=== PATIENT | male | born 1970 | race Two or more races ===

== ENCOUNTER 2022-10-13 12:13 | Inpatient (IN) | payer OTHER, SELFPAY ==
[2022-10-13 12:19] VITALS: BP 110/71; BP 126/70; PULSE 91; PULSE 96; RESP 18; TEMP 37.6; O2SAT 96; O2SAT 98; BMI 24.4
[2022-10-13 12:26] VITALS: BP 110/71; PULSE 91; RESP 18; TEMP 37.6; O2SAT 98
[2022-10-13 13:05] LABS: Appearance Urine Clear; Color Urine Yellow; Glucose Urine UA >=1000 mg/dL (Negative); Leukocyte Esterase Urine Negative (Negative); Nitrite Urine Negative (Negative); Specific Gravity - Urine >= 1.030 (1.005-1.025); UMIC TRIGGER UACC YES; Urine Blood Negative (Negative); Urine Ketones 15 mg/dL (Negative); Urine Protein Negative (Neg-Trace)
[2022-10-13 13:10] LABS: Bacteria Urine None Seen (None Seen); Hyaline Casts Urine 0-2 /LPF (0-2); RBC Urine 0-2 /HPF (0-2); Squamous Epithelial Cell Urine 0-2 /HPF (0-2); WBC Urine 0-5 /HPF (0-5)
--- NOTE | 2022-10-13 13:15 | PC.NURSE ---
Pt is refusing blood draw at this time.
[2022-10-13 13:22] LABS: Amphetamine Screen Urine Not Detected (Not Detect); Barbiturates, Urine Not Detected (Not Detect); Benzodiazepines Screen Urine Not Detected (Not Detect); Cannabinoid Screen Urine POSITIVE (Not Detect); Cocaine Screen Urine Not Detected (Not Detect); Fentanyl, urine Not Detected (Not Detect); Opiate Screen Urine Not Detected (Not Detect); Phencyclidine Screen Urine Not Detected (Not Detect)
[2022-10-13 13:31] LABS: COVID-19 Test Negative (Negative); IDNOW Serial# 16C4AD1C
[2022-10-13 14:01] LABS: MANUAL DIFF FLAG NO
[2022-10-13 14:02] LABS: Hematocrit 44.1 % (42.0-52.0); Hemoglobin 14.9 g/dl (14.0-18.0); Mean Corpuscular HGB Conc 33.8 g/dl (31.0-36.0); Mean Corpuscular Hemoglobin 31.2 pg (27.0-33.0); Mean Corpuscular Volume 92.3 fL (80.0-98.0); Platelet Count 214 X10*3/uL (160-400); Red Blood Count 4.78 X10*6/uL (4.60-5.80); Red Cell Distribution Width 12.8 % (11.0-16.0); White Blood Count 6.5 X10*3/uL (4.8-10.8)
[2022-10-13 14:03] LABS: Basophils Percent Auto 0.5 % (0-2); Eosinophils Absolute Auto 0.3 X10*3/uL (0.0-0.4); Imm Gran Abs Auto 0.04 X10*3/uL (0.00-0.03); Imm Gran Pct Auto 0.6 % (0.0-0.4); Lymphocytes Absolute Auto 1.9 X10*3/uL (1.2-4.9); Lymphocytes Percent Auto 29.7 % (20-40); Mean Platelet Volume 8.7 fL (9.4-12.4); Monocytes Absolute Auto 0.4 X10*3/uL (0.1-1.2); Monocytes Percent Auto 6.5 % (2-11); Neutrophils Absolute Auto 3.8 x10*3/uL (2.0-8.3); Neutrophils Percent Auto 58.7 % (45-73)
--- NOTE | 2022-10-13 14:14 | ECG_ITS ---
Test Reason : OVER 50YRS M5 CLEARANCE Blood Pressure : / mmHG Vent. Rate : 086 BPM Atrial Rate : 086 BPM P-R Int : 156 ms QRS Dur : 086 ms QT Int : 352 ms P-R-T Axes : 030 024 026 degrees QTc Int : 421 ms Normal sinus rhythm Normal ECG No previous ECGs available Referred By: Blas Oneil Electronically Signed By:KURT BANGURA MD
[2022-10-13 14:22] LABS: Alanine Aminotransferase 15 U/L (0-40); Alkaline Phosphatase 62 U/L (39-117); Anion Gap 16 (12-20); Aspartate Amino Transferase 16 U/L (5-37); Bilirubin Total 0.4 mg/dL (0.0-1.0); Blood Urea Nitrogen 13 mg/dL (9-16); Calcium 9.1 mg/dL (8.4-10.2); Carbon Dioxide 26 mmol/L (22-29); Chloride 97 mmol/L (96-108); Creatinine Clr Calc Pharmacy 92.6; Estimated Glomerular Filt Rate > 60; Glucose Random 275 mg/dL (60-115); Lipase 61 U/L (8-78); Potassium 3.8 mmol/L (3.3-5.1); Sodium 135 mmol/L (135-145); Total Protein 6.4 g/dL (6.5-8.0)
--- NOTE | 2022-10-13 17:12 | ED.PSYCH ---
HPI - Psych General Chief Complaint: Psychiatric Symptoms Stated Complaint: SI/HI,CALM AND COOP PER EMS Time Seen by Provider: 10/13/22 12:15 Source: patient Mode of arrival: EMS Limitations: no limitations History of Present Illness HPI Narrative: 52-year-old man who was brought to the emergency department on a Section 12 for suicidal ideation. The patient states that he had a ?spiritual attack ?this morning at 05:00 hours. He describes this as seeing himself choking himself and that there is a figure that stands in front of him with no face but only on eyes. He states that he has had this type of attack multiple times in the past. He states that this is made him feel very suicidal and he states that he does not feel that there is any way out. He states the talking about being suicidal makes him anxious but he did tell me that he does not have a plan to harm himself. He denies being homicidal but he states that he feels like he needs to fight against demons. Patient was seen by crisis as an outpatient call placed on a Section 12 and sent to the emergency department. Patient states that he was last hospitalized for his psychiatric condition in June of 2022 at [facility]. He states that he has the following psychiatric diagnoses: Depression, anxiety, bipolar disorder, schizophrenia. MD complaint: suicidal ideation Onset (ago): hour(s) Duration: constant History of same: Yes Relieving factors: none Exacerbating factors: none Associated psychiatric symptoms: depression, suicidal ideation and visual hallucinations Associated symptoms: denies other symptoms Treatments prior to arrival: none If self harm: admits thoughts of self harm Related Data Home Medications Medication Instructions Recorded Confirmed acetaminophen 325 mg tablet 650 mg PO Q4-6H PRN Pain 10/13/22 10/13/22 (Tylenol) aluminum-mag hydroxide-simethicone 1 tab PO Q4-6H PRN Acid Reflux 10/13/22 10/13/22 200 mg-200 mg-20 mg chewable tablet clonidine HCl 0.1 mg tablet 0.1 mg PO TID 10/13/22 10/13/22 diphenhydramine HCl 50 mg capsule 50 mg PO BEDTIME 10/13/22 10/13/22 divalproex 500 mg tablet,delayed 500 mg PO TID 10/13/22 10/13/22 release (Depakote) fluoxetine 40 mg capsule (Prozac) 40 mg PO QPM 10/13/22 10/13/22 gabapentin 100 mg capsule 100 mg PO TID 10/13/22 10/13/22 glipizide 5 mg tablet, extended 5 mg PO DAILY 10/13/22 10/13/22 release 24 hr guaifenesin 200 mg/5 mL oral liquid 200 mg PO Q4H PRN Cough 10/13/22 10/13/22 magnesium hydroxide 2,400 mg/10 mL 10 ml PO DAILY PRN Acid Reflux 10/13/22 10/13/22 oral suspension (Milk Of Magnesia Concentrated) metformin 1,000 mg tablet 1,000 mg PO BID 10/13/22 10/13/22 naloxone 4 mg/actuation nasal 1 spray intranasal USEASDIRECTD 10/13/22 10/13/22 spray (Narcan) PRN (Drug) Ingestion prazosin 2 mg capsule 4 mg PO BEDTIME 10/13/22 10/13/22 quetiapine 100 mg tablet (Seroquel) 100 mg PO BEDTIME 10/13/22 10/13/22 Allergies Allergy/AdvReac Type Severity Reaction Status Date / Time atorvastatin [From Lipitor] Allergy Unknown Verified 10/13/22 12:19 prochlorperazine Allergy Unknown Verified 10/13/22 12:19 [From Compazine] sitagliptin [From Januvia] Allergy Unknown Verified 10/13/22 12:19 Review of Systems Review of Systems: Yes all other systems are reviewed and are negative [facility] Past Medical History [facility] Narrative: Past medical history: Diabetes mellitus, diabetic neuropathy of his hands and feet, hypertension, hyperlipidemia, depression, anxiety, bipolar disorder, schizophrenia. Past surgical history: None. Social history: He states that he smokes cigars 1-2 per day. Denies alcohol use. States that he smokes marijuana 2 times a month. States that he is currently living at the [facility] which he states is a dual diagnosis program. States these therefore his psychiatric and mental disorders as well as marijuana addiction. Social History Social History Alcohol intake: unknown Smoked in Last 30 Days: No Use of substances other than those prescribed or required for medical reasons: Refusing to respond Advance Directives: No Physical Exam Vital Signs: Vital Signs: Last Vital Signs Temp 99.7 F 10/13/22 12:26 Pulse 91 10/13/22 12:26 Resp 18 10/13/22 12:26 BP 110/71 10/13/22 12:26 Pulse Ox 98 10/13/22 12:26 O2 Del Method 10/13/22 12:26 BMI result Body Mass Index 24.4 Const: General: cooperative and no acute distress Orientation/consciousness: oriented to person and oriented to place Limitations: no limitations HEENT: Head: Yes normal to inspection, Yes normocephalic and Yes atraumatic Ears: external ears normal General nose exam: Normal external nose present Face and sinus: Yes normal facial exam Mouth: Normal oral and palatal mucosa present Throat: Yes posterior oropharynx normal Eyes: General: appearance normal, both eyes and all related structures Pupils: Equal, round and reactive pupils present Neck: Neck: Yes normal visual inspection, Yes no lymphadenopathy, Yes trachea midline and Yes supple Chest: Chest palpation & inspection: normal inspection of the chest and normal palpation of entire chest wall Resp: Effort & Inspection: normal respiratory effort and able to speak in complete sentences Auscultation: clear to auscultation bilaterally Cardio: Rate: regular rate Rhythm: regular rhythm Heart sounds: S1 normal heart sound present, S2 normal heart sound present and no murmurs GI: Inspection: Yes normal to inspection Palpation (GI): Soft to palpation, nontender and no guarding Auscultation: normal bowel sounds : General: Yes no CVA tenderness Back/Spine/Pelvis: Back: no CVA tenderness Skin: General skin exam: no rashes or lesions noted Neuro: General: oriented to person and oriented to place Cranial nerves: Yes CN's II-XII intact bilaterally and Yes Equal, round and reactive pupils present Cognition (Neuro): normal cognition Motor exam (neuro): 5/5 motor strength present throughout Extrem: General: Yes normal to inspection Psych: Appearance: grossly normal Speech and movement: Normal speech and movement present Affect: normal affect Attitude: cooperative Thought process: Normal thought process present Thought content: Suicidality present Course Course Course Narrative: 52-year-old male who was sent to the emergency department on a Section 12 after being evaluated as an outpatient by crisis service. Patient is having suicidal ideations as well as visual hallucinations which he states he has had in the past. He states he does feel suicidal he denies feeling homicidal. Vital signs were unremarkable. Patient's physical examination was unremarkable. 1719: Laboratory evaluation: Glucose was elevated 275. Toxicology was positive for marijuana. COVID-19 was negative. Patient is medically cleared. 1719: Start physician observation: The patient will need to be kept in physician observation until appropriate disposition can be found. Patient's physical examination is unchanged from his baseline, he is awake, alert, in no distress, lungs clear, heart regular rate rhythm, lungs clear, abdomen soft nontender, neurologic exam nonfocal MDM - Psych Lab Data Result diagrams: 10/13/22 13:27 10/13/22 13:27 Labs: Lab Results 10/13/22 10/13/22 10/13/22 Range/Units 12:44 12:44 12:44 WBC (4.8-10.8) X10*3/uL RBC (4.60-5.80) X10*6/uL Hgb (14.0-18.0) g/dl Hct (42.0-52.0) % MCV (80.0-98.0) fL MCH (27.0-33.0) pg MCHC (31.0-36.0) g/dl RDW (11.0-16.0) % Plt Count (160-400) X10*3/uL MPV (9.4-12.4) fL Immature Gran % (Auto) (0.0-0.4) % Neut % (Auto) (45-73) % Lymph % (Auto) (20-40) % [place] % (Auto) (2-11) % Eos % (Auto) (0-4) % Baso % (Auto) (0-2) % Lymph # (Auto) (1.2-4.9) X10*3/uL [place] # (Auto) (0.1-1.2) X10*3/uL Eos # (Auto) (0.0-0.4) X10*3/uL Baso # (Auto) (0.0-0.2) X10*3/uL Abs Immat Gran (auto) (0.00-0.03) X10*3/uL Absolute Neuts (auto) (2.0-8.3) x10*3/uL Absolute Nucleated RBC (0.0-0.012) X10*3/uL Nucleated RBC % (auto) (0.0-0.2) /100WBC Sodium (135-145) mmol/L Potassium (3.3-5.1) mmol/L Chloride (96-108) mmol/L Carbon Dioxide (22-29) mmol/L Anion Gap (12-20) BUN (9-16) mg/dL Creatinine (0.5-1.4) mg/dL Estim Creat Clear Calc Estimated GFR Random Glucose (60-115) mg/dL Calcium (8.4-10.2) mg/dL Total Bilirubin (0.0-1.0) mg/dL AST (5-37) U/L ALT (0-40) U/L Alkaline Phosphatase (39-117) U/L Total Protein (6.5-8.0) g/dL Albumin (3.5-5.0) g/dL Lipase (8-78) U/L Urine Color Yellow Urine Appearance Clear Urine pH 5.0 (5.0-9.0) Ur Specific [place] >= 1.030 H (1.005-1.025) Urine Protein Negative (Neg-Trace) mg/dL Urine Glucose (UA) >=1000 H (Negative) mg/dL Urine Ketones 15 (Negative) mg/dL Urine Blood Negative (Negative) Urine Nitrite Negative (Negative) Ur Leukocyte Esterase Negative (Negative) Urine RBC 0-2 (0-2) /HPF Urine WBC 0-5 (0-5) /HPF Ur Squamous Epith Cells 0-2 (0-2) /HPF Urine Bacteria None Seen (None Seen) Hyaline Casts 0-2 (0-2) /LPF Urine Opiates Screen Not Detected (Not Detect) Urine Fentanyl Screen Not Detected (Not Detect) Ur Barbiturates Screen Not Detected (Not Detect) Ur Phencyclidine Scrn Not Detected (Not Detect) Ur Amphetamines Screen Not Detected (Not Detect) U Benzodiazepines Scrn Not Detected (Not Detect) Urine Cocaine Screen Not Detected (Not Detect) U Marijuana (THC) Screen POSITIVE H (Not Detect) COVID-19 (VICKI) Negative (Negative) COVID-19 Clin Com See Note 10/13/22 10/13/22 Range/Units 13:27 13:27 WBC 6.5 (4.8-10.8) X10*3/uL RBC 4.78 (4.60-5.80) X10*6/uL Hgb 14.9 (14.0-18.0) g/dl Hct 44.1 (42.0-52.0) % MCV 92.3 (80.0-98.0) fL MCH 31.2 (27.0-33.0) pg MCHC 33.8 (31.0-36.0) g/dl RDW 12.8 (11.0-16.0) % Plt Count 214 (160-400) X10*3/uL MPV 8.7 L (9.4-12.4) fL Immature Gran % (Auto) 0.6 H (0.0-0.4) % Neut % (Auto) 58.7 (45-73) % Lymph % (Auto) 29.7 (20-40) % [place] % (Auto) 6.5 (2-11) % Eos % (Auto) 4.0 (0-4) % Baso % (Auto) 0.5 (0-2) % Lymph # (Auto) 1.9 (1.2-4.9) X10*3/uL [place] # (Auto) 0.4 (0.1-1.2) X10*3/uL Eos # (Auto) 0.3 (0.0-0.4) X10*3/uL Baso # (Auto) 0.0 (0.0-0.2) X10*3/uL Abs Immat Gran (auto) 0.04 H (0.00-0.03) X10*3/uL Absolute Neuts (auto) 3.8 (2.0-8.3) x10*3/uL Absolute Nucleated RBC 0.000 (0.0-0.012) X10*3/uL Nucleated RBC % (auto) 0.0 (0.0-0.2) /100WBC Sodium 135 (135-145) mmol/L Potassium 3.8 (3.3-5.1) mmol/L Chloride 97 (96-108) mmol/L Carbon Dioxide 26 (22-29) mmol/L Anion Gap 16 (12-20) BUN 13 (9-16) mg/dL Creatinine 1.00 (0.5-1.4) mg/dL Estim Creat Clear Calc 92.6 Estimated GFR > 60 Random Glucose 275 H (60-115) mg/dL Calcium 9.1 (8.4-10.2) mg/dL Total Bilirubin 0.4 (0.0-1.0) mg/dL AST 16 (5-37) U/L ALT 15 (0-40) U/L Alkaline Phosphatase 62 (39-117) U/L Total Protein 6.4 L (6.5-8.0) g/dL Albumin 4.0 (3.5-5.0) g/dL Lipase 61 (8-78) U/L Urine Color Urine Appearance Urine pH (5.0-9.0) Ur Specific [place] (1.005-1.025) Urine Protein (Neg-Trace) mg/dL Urine Glucose (UA) (Negative) mg/dL Urine Ketones (Negative) mg/dL Urine Blood (Negative) Urine Nitrite (Negative) Ur Leukocyte Esterase (Negative) Urine RBC (0-2) /HPF Urine WBC (0-5) /HPF Ur Squamous Epith Cells (0-2) /HPF Urine Bacteria (None Seen) Hyaline Casts (0-2) /LPF Urine Opiates Screen (Not Detect) Urine Fentanyl Screen (Not Detect) Ur Barbiturates Screen (Not Detect) Ur Phencyclidine Scrn (Not Detect) Ur Amphetamines Screen (Not Detect) U Benzodiazepines Scrn (Not Detect) Urine Cocaine Screen (Not Detect) U Marijuana (THC) Screen (Not Detect) COVID-19 (VICKI) (Negative) COVID-19 Clin Com Discharge Plan Discharge Clinical Impression: Suicidal ideation, Hallucination, visual Patient Disposition: Still a Patient Prescriptions: No Action clonidine HCl 0.1 mg Tablet 0.1 mg PO TID diphenhydramine HCl [Benadryl] 50 mg Capsule 50 mg PO BEDTIME Mylanta 200-200-20 mg Tablet,Chewable 1 tab PO Q4-6H PRN (Reason: Acid Reflux) glipizide 5 mg Tablet Extended Release 24hr 5 mg PO DAILY divalproex [Depakote] 500 mg Tablet,Delayed Release (Dr/Ec) 500 mg PO TID metformin 1,000 mg Tablet 1,000 mg PO BID gabapentin 100 mg Capsule 100 mg PO TID guaifenesin 200 mg/5 mL Liquid 200 mg PO Q4H PRN (Reason: Cough) magnesium hydroxide [Milk Of Magnesia Concentrated] 2,400 mg/10 mL Suspension 10 ml PO DAILY PRN (Reason: Acid Reflux) fluoxetine [Prozac] 40 mg Capsule 40 mg PO QPM acetaminophen [Tylenol] 325 mg Tablet 650 mg PO Q4-6H PRN (Reason: Pain) quetiapine [Seroquel] 100 mg Tablet 100 mg PO BEDTIME prazosin 2 mg Capsule 4 mg PO BEDTIME naloxone [Narcan] 4 mg/actuation [place],Non-Aerosol 1 spray INTRANASAL USEASDIRECTD PRN (Reason: (Drug) Ingestion)
--- NOTE | 2022-10-13 20:54 | PC.NURSE ---
Nurse to nurse report provided to [facility]. Pt to be transferred to M3. Pt aware of plan care.
--- NOTE | 2022-10-14 05:08 | PC.ADMIT ---
Pt is a 52 year old male admitted to the unit after referral from N at [facility] ED. Arrived on unit at 2145, legal status CV. Medical issues: diabetes, neuropathy, sciatica, HTN, hyperlipidemia, arthritis, tendonitis, hx concussions. Pt reports that he has been having episodes of passing out , unknown cause. Substance use: pt reports being sober from alcohol for 4 years. He reports daily marijuana use, last use 3 weeks ago due to currently residing at the [facility] and needing to remain clean/sober. Pt reports he has been at the [facility] for approx. 2 weeks. Precipitant: Pt reports that staff at the program called crisis Justyna night after having one of his episodes when he was sleeping, stating that he was choking himself. 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 Pt also reports depression and anxiety, and states that he always feels suicidal ; denies any plan or intent at this time. He reported auditory hallucinations at times, which are deragatory and negative, and visual hallucinations of his mother, shadow people , and myself as the joker . He denies any HI or any hallucinations at this time. Reports sleeping in naps throughout the night. Pt reports hx of trauma, and has night terrors and paranoia at times. At time of admission assessment pt presents with depressed, blunted affect. He is pleasant and cooperative throughout assessment. Reports always feeling suicidal, denies plan/intent, contracts for safety on the unit. Pt reports being compliant with medications. Nurse to nurse completed. Provider notified of admission and orders obtained. Treatment plan initiated. Pt on 15 minute safety checks. Note: Pt states that he does not like men coming at me with needles , including for POC. Requests female staff if possible, or he may decline.
[2022-10-14 08:40] VITALS: BP 131/65; PULSE 82; RESP 20; TEMP 36.2; O2SAT 97
[2022-10-14] MEDS: cloNIDine HCL 0.1 MG TABLET PO ×3 (08:47→21:05)
[2022-10-14] MEDS: metFORMIN HCl 1,000 MG TABLET 1000 MG PO ×2 (08:47→21:05)
[2022-10-14] MEDS: Gabapentin 100 MG CAPSULE PO ×3 (08:47→21:05)
[2022-10-14] MEDS: glipiZIDE XL 5 MG TAB.ER.24 PO (08:47)
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
[2022-10-14 09:27] LABS: Estimated Average Glucose 237 mg/dL; Hemoglobin A1c % 9.9 %
[2022-10-14 09:49] LABS: Alanine Aminotransferase 16 U/L (0-40); Albumin Level 4.3 g/dL (3.5-5.0); Alkaline Phosphatase 60 U/L (39-117); Aspartate Amino Transferase 15 U/L (5-37); Bilirubin Total 0.5 mg/dL (0.0-1.0); Blood Urea Nitrogen 10 mg/dL (9-16); Calcium 9.8 mg/dL (8.4-10.2); Cholesterol 265 mg/dL; Creatinine Clr Calc Pharmacy 89.1; Estimated Glomerular Filt Rate > 60; Glucose Fasting 230 mg/dL (60-99); HDL Cholesterol 50 mg/dL; LDL Cholesterol Calculated 197 mg/dl; Thyroid Stimulating Hormone 1.01 uIU/mL (0.32-4.0); Total Protein 7.1 g/dL (6.5-8.0); Triglycerides 94 mg/dL
[2022-10-14 09:53] LABS: Folate 13.9 ng/mL (> or = 4.0); Vitamin B12 573 pg/mL (200-900)
[2022-10-14 10:05] LABS: Anion Gap 12 (12-20); Carbon Dioxide 29 mmol/L (22-29); Chloride 101 mmol/L (96-108); Potassium 5.1 mmol/L (3.3-5.1); Sodium 137 mmol/L (135-145)
[2022-10-14 14:40] VITALS: BP 137/79; PULSE 86; RESP 18; O2SAT 98
[2022-10-14 20:44] VITALS: BP 137/79; PULSE 80; RESP 18; TEMP 36.5; O2SAT 99
[2022-10-14 21:04] LABS: Glucose, Whole Blood 350 mg/dL (60-115)
[2022-10-14] MEDS: risperiDONE 1 MG TABLET PO (21:05)
[2022-10-14] MEDS: diphenhydrAMINE HCL 25 MG CAPSULE 50 MG PO (21:05)
[2022-10-14] MEDS: QUEtiapine Fumarate 100 MG TABLET PO (21:05)
[2022-10-14] MEDS: Prazosin HCL 1 MG CAPSULE 4 MG PO (21:05)
[2022-10-15 09:02] LABS: Glucose, Whole Blood 208 mg/dL (60-115)
[2022-10-15 09:10] VITALS: BP 103/59; PULSE 83; RESP 20; TEMP 36.4; O2SAT 97
[2022-10-15] MEDS: risperiDONE 1 MG TABLET PO ×2 (09:19→20:36)
[2022-10-15] MEDS: Gabapentin 100 MG CAPSULE PO (09:19)
[2022-10-15] MEDS: FLUoxetine HCl 20 MG CAPSULE PO (09:20)
[2022-10-15] MEDS: metFORMIN HCl 1,000 MG TABLET 1000 MG PO ×2 (09:20→20:34)
[2022-10-15] MEDS: glipiZIDE XL 5 MG TAB.ER.24 PO (09:20)
[2022-10-15] MEDS: Acetaminophen 325 MG TABLET 650 MG PO (09:20)
[2022-10-15] MEDS: cloNIDine HCL 0.1 MG TABLET PO ×3 (09:21→20:35)
--- NOTE | 2022-10-15 11:53 | P.PNPSI_ITS ---
Subjective Subjective Date of Service: 10/15/22 Reason For Visit: SI Subjective Notes: Conditional Voluntary Interim History: Pt reports some difficulty sleeping. He reports RLS, but also pain related to neuropathy. Pt reports feeling less anxious, still hearing voices, but he reports he is distracting himself by reading or talking to others. He denies SI/HI. Still some ideas about being religiously preoccupied, ideas of being religiously attack still present. He is tolerating risperidone, may need increase in dose if no improvement. Per nursing, pt more visible, no behavioral concerns. Review of Systems Review of Systems Yes all other systems are reviewed and are negative Mental Status Exam Mental Status Exam Narrative: Appearance: casually groomed, fair hygiene, in NAD Behavior: cooperative Psychomotor: no agitation or retardation noted Speech: clear, normal rate/rhythm/volume, spontaneous TP: linear TC: feeling anxious, worried about reactions when having attacks Mood: anxious Affect: congruent AH/VH: on and off voices of anabaptism nature, command at times but not today Delusions: anabaptism preoccupation. Insight/judgment: fair x 2. Memory/cog: alert, oriented x 3. Diagnostics Vital Signs (24Hr): Vital Signs - 24 hr 10/15/22 09:10 10/15/22 20:40 Temperature 97.6 F 97.8 F Pulse Rate 83 83 Respiratory Rate 20 Blood Pressure 103/59 L 109/62 Pulse Oximetry 97 95 Oxygen Delivery Method Room Air Room Air BMI result Body Mass Index 24.4 Labs Results: 10/13/22 13:27 10/14/22 08:43 Labs: Laboratory Results - last 48 hr 10/14/22 10/14/22 10/14/22 08:43 08:43 08:43 Sodium 137 Potassium 5.1 D Chloride 101 Carbon Dioxide 29 Anion Gap 12 BUN 10 Creatinine 1.04 Estim Creat Clear Calc 89.1 Estimated GFR > 60 POC Glucose Fasting Glucose 230 H Estimat Average Glucose 237 Hemoglobin A1c % 9.9 Calcium 9.8 D Total Bilirubin 0.5 AST 15 ALT 16 Alkaline Phosphatase 60 Total Protein 7.1 Albumin 4.3 Triglycerides 94 Cholesterol 265 LDL Cholesterol, Calc 197 HDL Cholesterol 50 Vitamin B12 573 Folate 13.9 TSH 1.01 10/14/22 10/15/22 10/15/22 21:00 08:41 20:17 Sodium Potassium Chloride Carbon Dioxide Anion Gap BUN Creatinine Estim Creat Clear Calc Estimated GFR POC Glucose 350 H* 208 H 342 H Fasting Glucose Estimat Average Glucose Hemoglobin A1c % Calcium Total Bilirubin AST ALT Alkaline Phosphatase Total Protein Albumin Triglycerides Cholesterol LDL Cholesterol, Calc HDL Cholesterol Vitamin B12 Folate TSH Medications Medications Current Medications Acetaminophen (Acetaminophen 325 Mg Tablet) 650 mg PO Q6H PRN PRN Reason: Headache/Pain Mild Scale (1-3) Last Admin: 10/15/22 09:20 Dose: 650 mg Al Hydroxide/Mg Hydroxide (Magnesium Hydrox/Alum Hydrox 30 Ml Oral.Susp) 30 ml PO Q6H PRN PRN Reason: Heartburn/Nausea Clonidine HCl (Clonidine Hcl 0.1 Mg Tablet) 0.1 mg PO TID [facility]; Protocol Last Admin: 10/15/22 20:35 Dose: 0.1 mg Dextrose (Dextrose 50 % 25 Gm/50 Ml Syringe) 25 gm IVPUSH Q15M PRN; Protocol PRN Reason: per Hypoglycemia Standing Ord. Diphenhydramine HCl (Diphenhydramine Hcl 25 Mg Capsule) 50 mg PO BEDTIME [facility] Last Admin: 10/15/22 20:34 Dose: 50 mg Divalproex Sodium (Divalproex Sodium 500 Mg Tablet.Dr) 500 mg PO BID [facility] Last Admin: 10/15/22 20:35 Dose: 500 mg Fluoxetine HCl (Fluoxetine Hcl 20 Mg Capsule) 20 mg PO DAILY [facility] Last Admin: 10/15/22 09:20 Dose: 20 mg Gabapentin (Gabapentin 300 Mg Capsule) 300 mg PO TID [facility] Last Admin: 10/15/22 21:32 Dose: 300 mg Glipizide (Glipizide Xl 5 Mg Tab.Er.24) 5 mg PO DAILY [facility] Last Admin: 10/15/22 09:20 Dose: 5 mg Glucose (Glucose Gel 15 Gm Gel..Gram.) 15 gm PO Q15M PRN; Protocol PRN Reason: per Hypoglycemia Standing Ord. Hydroxyzine HCl (Hydroxyzine Hcl 25 Mg Tablet) 25 mg PO Q6H PRN PRN Reason: Anxiety Insulin Human Lispro (Insulin Lispro 100 Unit/Ml 3 Ml Vial) 0 unit SUBCUT QIDACHS [facility]; Protocol Last Admin: 10/15/22 20:50 Dose: 8 unit Magnesium Hydroxide (Milk Of Magnesia 30 Ml Oral.Susp) 30 ml PO DAILY PRN PRN Reason: Constipation Metformin HCl (Metformin Hcl 1,000 Mg Tablet) 1,000 mg PO BID [facility] Last Admin: 10/15/22 20:34 Dose: 1,000 mg Prazosin HCl (Prazosin Hcl 1 Mg Capsule) 4 mg PO BEDTIME [facility]; Protocol Last Admin: 10/15/22 20:34 Dose: 4 mg Quetiapine Fumarate (Quetiapine Fumarate 100 Mg Tablet) 100 mg PO BEDTIME [facility] Last Admin: 10/15/22 20:35 Dose: 100 mg Risperidone (Risperidone 1 Mg Tablet) 1 mg PO BID [facility] Last Admin: 10/15/22 20:36 Dose: 1 mg Trazodone HCl (Trazodone Hcl 50 Mg Tablet) 50 mg PO BEDTIME PRN PRN Reason: Insomnia Allergies Allergies Allergy/AdvReac Type Severity Reaction Status Date / Time atorvastatin [From Lipitor] Allergy Unknown Verified 10/13/22 12:19 prochlorperazine Allergy Unknown Verified 10/13/22 12:19 [From Compazine] sitagliptin [From Januvia] Allergy Unknown Verified 10/13/22 12:19 Assessment & Plan Assessment & Plan (1) Severe manic bipolar 1 disorder with psychotic behavior: Status: Acute Code(s): F31.2 - Bipolar disorder, current episode manic severe with psychotic features Plan Mr. Grossman is a 52 year-old male hx of trauma r/o Bipolar Disorder, tentative Dx of MDD with psychosis, presents to [facility] ED after staff at [facility] program called crisis due to pt presenting hearing voices, anabaptism nature telling her to hurt himself and others. Utox positive for cannabis. On the unit, pt reports feeling anxious, worried about his reaction when having attacks which he describes as being like he is being watched, spiritually attacked by others and felt he was being shocked. We discussed risks, benefits and alternative treatment options. PLAN 1. Admit to M3, CV, 15 minutes checks for safety. 2. start risperidone 1mg po BID, continue seroquel but try to keep on only one antipsychotic. continue depakote 3. obtain collateral information 4. aftercare planning. 10/15 increase gabapentin to 300mg po TID. continue risperidone 1mg po BID, may titrate as needed. I spent minutes with the patient and/or on the patient floor today, greater than?50% of which was spent counseling/coordinating care. Reason for contiued inpatient stay Substantial Risk for: harm to self
[2022-10-15] MEDS: Gabapentin 300 MG CAPSULE PO ×2 (15:12→21:32)
[2022-10-15] MEDS: Divalproex Sodium 500 MG TABLET.DR PO ×2 (15:13→20:35)
[2022-10-15 20:26] LABS: Glucose, Whole Blood 342 mg/dL (60-115)
[2022-10-15] MEDS: diphenhydrAMINE HCL 25 MG CAPSULE 50 MG PO (20:34)
[2022-10-15] MEDS: Prazosin HCL 1 MG CAPSULE 4 MG PO (20:34)
[2022-10-15] MEDS: QUEtiapine Fumarate 100 MG TABLET PO (20:35)
[2022-10-15 20:40] VITALS: BP 109/62; PULSE 83; TEMP 36.6; O2SAT 95
[2022-10-15] MEDS: Insulin Lispro 100 UNIT/ML 3 ML VIAL SUBCUT (20:50)
--- NOTE | 2022-10-16 | ECG_ITS ---
Test Reason : chest pain Blood Pressure : / mmHG Vent. Rate : 081 BPM Atrial Rate : 081 BPM P-R Int : 172 ms QRS Dur : 084 ms QT Int : 348 ms P-R-T Axes : 036 043 022 degrees QTc Int : 404 ms Normal sinus rhythm RSR' or QR pattern in V1 suggests right ventricular conduction delay Nonspecific ST abnormality Septal leads Abnormal ECG When compared with ECG of 13-OCT-2022 14:27, RSR' or QR pattern in V1 suggests right ventricular conduction delay is now Present Referred By: Mary Gonzalez Electronically Signed By:KURT BANGURA MD
--- NOTE | 2022-10-16 | ECG_ITS ---
Test Reason : cp Blood Pressure : / mmHG Vent. Rate : 079 BPM Atrial Rate : 079 BPM P-R Int : 176 ms QRS Dur : 092 ms QT Int : 358 ms P-R-T Axes : 043 037 021 degrees QTc Int : 410 ms Normal sinus rhythm RSR' or QR pattern in V1 suggests right ventricular conduction delay Nonspecific ST abnormality Abnormal ECG When compared with ECG of 16-OCT-2022 15:19, No significant change was found Referred By: Mary Gonzalez Electronically Signed By:KURT BANGURA MD
--- NOTE | 2022-10-16 00:52 | HO.PSYCHPN ---
Subjective Subjective Date of Service: 10/16/22 Reason For Visit: SI Interim History: Discussed with team, pt is isolative, irritable when asked too many questions. Pt had complained of radiating pain down left arm, EKG ordered, report indicated N-stemi, consulted with hospitalist and repeat EKG was wnl, NSR, troponin wnl. Ordered aspirin. Pt has hx of hypercholesterolemia, however says he is allergic to atorvastatin due to worsening muscle spasms. Spoke with pt, no questions or concerns, complains of neuropathy, asks about scabs on his leg. Will use bacitracin. Willing to increase gabapentin. Sleep is not good, beds are not comfortable, has sciatica in legs, arms, and hands. Says he is always in pain, feels stiff, and sore. Medication Compliance: Yes Side effects from medications: No Attending Groups: No Review of Systems Acute medical concerns: No Medical Review of Systems: unchanged Mental Status Exam Mental Status Exam Narrative: Appearance: casually groomed, fair hygiene, in NAD Behavior: cooperative Psychomotor: no agitation or retardation noted Speech: clear, normal rate/rhythm/volume, spontaneous TP: linear TC: feeling anxious, worried about reactions when having attacks Mood: okay Affect: congruent AH/VH: on and off voices of oriental orthodox nature, command at times but not today Delusions: oriental orthodox preoccupation. Insight/judgment: fair x 2. Memory/cog: alert, oriented x 3. Diagnostics Vital Signs (24Hr): Vital Signs - 24 hr 10/15/22 09:10 10/15/22 20:40 Temperature 97.6 F 97.8 F Pulse Rate 83 83 Respiratory Rate 20 Blood Pressure 103/59 L 109/62 Pulse Oximetry 97 95 Oxygen Delivery Method Room Air Room Air BMI result Body Mass Index 24.4 Labs Results: 10/13/22 13:27 10/14/22 08:43 Labs: Laboratory Results - last 48 hr 10/14/22 10/14/22 10/14/22 08:43 08:43 08:43 Sodium 137 Potassium 5.1 D Chloride 101 Carbon Dioxide 29 Anion Gap 12 BUN 10 Creatinine 1.04 Estim Creat Clear Calc 89.1 Estimated GFR > 60 POC Glucose Fasting Glucose 230 H Estimat Average Glucose 237 Hemoglobin A1c % 9.9 Calcium 9.8 D Total Bilirubin 0.5 AST 15 ALT 16 Alkaline Phosphatase 60 Total Protein 7.1 Albumin 4.3 Triglycerides 94 Cholesterol 265 LDL Cholesterol, Calc 197 HDL Cholesterol 50 Vitamin B12 573 Folate 13.9 TSH 1.01 10/14/22 10/15/22 10/15/22 21:00 08:41 20:17 Sodium Potassium Chloride Carbon Dioxide Anion Gap BUN Creatinine Estim Creat Clear Calc Estimated GFR POC Glucose 350 H* 208 H 342 H Fasting Glucose Estimat Average Glucose Hemoglobin A1c % Calcium Total Bilirubin AST ALT Alkaline Phosphatase Total Protein Albumin Triglycerides Cholesterol LDL Cholesterol, Calc HDL Cholesterol Vitamin B12 Folate TSH Medications Medications Current Medications Acetaminophen (Acetaminophen 325 Mg Tablet) 650 mg PO Q6H PRN PRN Reason: Headache/Pain Mild Scale (1-3) Last Admin: 10/15/22 09:20 Dose: 650 mg Al Hydroxide/Mg Hydroxide (Magnesium Hydrox/Alum Hydrox 30 Ml Oral.Susp) 30 ml PO Q6H PRN PRN Reason: Heartburn/Nausea Clonidine HCl (Clonidine Hcl 0.1 Mg Tablet) 0.1 mg PO TID [facility]; Protocol Last Admin: 10/15/22 20:35 Dose: 0.1 mg Dextrose (Dextrose 50 % 25 Gm/50 Ml Syringe) 25 gm IVPUSH Q15M PRN; Protocol PRN Reason: per Hypoglycemia Standing Ord. Diphenhydramine HCl (Diphenhydramine Hcl 25 Mg Capsule) 50 mg PO BEDTIME [facility] Last Admin: 10/15/22 20:34 Dose: 50 mg Divalproex Sodium (Divalproex Sodium 500 Mg Tablet.Dr) 500 mg PO BID [facility] Last Admin: 10/15/22 20:35 Dose: 500 mg Fluoxetine HCl (Fluoxetine Hcl 20 Mg Capsule) 20 mg PO DAILY [facility] Last Admin: 10/15/22 09:20 Dose: 20 mg Gabapentin (Gabapentin 300 Mg Capsule) 300 mg PO TID [facility] Last Admin: 10/15/22 21:32 Dose: 300 mg Glipizide (Glipizide Xl 5 Mg Tab.Er.24) 5 mg PO DAILY [facility] Last Admin: 10/15/22 09:20 Dose: 5 mg Glucose (Glucose Gel 15 Gm Gel..Gram.) 15 gm PO Q15M PRN; Protocol PRN Reason: per Hypoglycemia Standing Ord. Hydroxyzine HCl (Hydroxyzine Hcl 25 Mg Tablet) 25 mg PO Q6H PRN PRN Reason: Anxiety Insulin Human Lispro (Insulin Lispro 100 Unit/Ml 3 Ml Vial) 0 unit SUBCUT QIDACHS [facility]; Protocol Last Admin: 10/15/22 20:50 Dose: 8 unit Magnesium Hydroxide (Milk Of Magnesia 30 Ml Oral.Susp) 30 ml PO DAILY PRN PRN Reason: Constipation Metformin HCl (Metformin Hcl 1,000 Mg Tablet) 1,000 mg PO BID [facility] Last Admin: 10/15/22 20:34 Dose: 1,000 mg Prazosin HCl (Prazosin Hcl 1 Mg Capsule) 4 mg PO BEDTIME [facility]; Protocol Last Admin: 10/15/22 20:34 Dose: 4 mg Quetiapine Fumarate (Quetiapine Fumarate 100 Mg Tablet) 100 mg PO BEDTIME [facility] Last Admin: 10/15/22 20:35 Dose: 100 mg Risperidone (Risperidone 1 Mg Tablet) 1 mg PO BID [facility] Last Admin: 10/15/22 20:36 Dose: 1 mg Trazodone HCl (Trazodone Hcl 50 Mg Tablet) 50 mg PO BEDTIME PRN PRN Reason: Insomnia Allergies Allergies Allergy/AdvReac Type Severity Reaction Status Date / Time atorvastatin [From Lipitor] Allergy Unknown Verified 10/13/22 12:19 prochlorperazine Allergy Unknown Verified 10/13/22 12:19 [From Compazine] sitagliptin [From Januvia] Allergy Unknown Verified 10/13/22 12:19 Assessment & Plan Assessment & Plan (1) MDD (major depressive disorder), recurrent, severe, with psychosis: Status: Acute Code(s): F33.3 - Major depressive disorder, recurrent, severe with psychotic symptoms Plan Mr. Grossman is a 52 year-old male hx of trauma r/o Bipolar Disorder, tentative Dx of MDD with psychosis, presents to [facility] ED after staff at [facility] program called crisis due to pt presenting hearing voices, oriental orthodox nature telling her to hurt himself and others. Utox positive for cannabis. On the unit, pt reports feeling anxious, worried about his reaction when having attacks which he describes as being like he is being watched, spiritually attacked by others and felt he was being shocked. We discussed risks, benefits and alternative treatment options. PLAN 1. Admit to M3, CV, 15 minutes checks for safety. 2. start risperidone 1mg po BID, continue seroquel but try to keep on only one antipsychotic. continue depakote 3. obtain collateral information 4. aftercare planning. 10/15 increase gabapentin to 300mg po TID. continue risperidone 1mg po BID, may titrate as needed. 10/16 increase gabapentin to 400 mg TID for neuropathic pain. Add aspirin per hospitalist. I spent minutes with the patient and/or on the patient floor today, greater than?50% of which was spent counseling/coordinating care. Patient educated on: medication risk/benefits and therapeutic strategies Reason for contiued inpatient stay Substantial Risk for: harm to self and med/psych decompensation
[2022-10-16 08:15] VITALS: BP 106/56; PULSE 83; RESP 18; TEMP 36.6; O2SAT 98
[2022-10-16] MEDS: risperiDONE 1 MG TABLET PO ×2 (08:58→20:24)
[2022-10-16] MEDS: FLUoxetine HCl 20 MG CAPSULE PO (08:58)
[2022-10-16] MEDS: glipiZIDE XL 5 MG TAB.ER.24 PO (08:58)
[2022-10-16] MEDS: cloNIDine HCL 0.1 MG TABLET PO ×3 (08:58→20:24)
[2022-10-16] MEDS: metFORMIN HCl 1,000 MG TABLET 1000 MG PO ×2 (08:58→20:24)
[2022-10-16] MEDS: Divalproex Sodium 500 MG TABLET.DR PO ×2 (08:58→20:24)
[2022-10-16] MEDS: Gabapentin 300 MG CAPSULE PO (08:58)
[2022-10-16] MEDS: Insulin Lispro 100 UNIT/ML 3 ML VIAL SUBCUT ×4 (09:01→20:23)
[2022-10-16 09:08] LABS: Glucose, Whole Blood 251 mg/dL (60-115)
[2022-10-16 12:40] LABS: Glucose, Whole Blood 238 mg/dL (60-115)
[2022-10-16] MEDS: Gabapentin 400 MG CAPSULE PO ×2 (14:32→20:24)
--- NOTE | 2022-10-16 14:35 | PC.NURSE ---
Pt c/o left arm pain and numbness and some chest pain at 1415. VSS, BP 129/61, P 85, O2 Sat 98%, T 98.7. [employer] notified with request for possible EKG. Pt reports that he has a pain of 5 normally, but pain is a 9 at this time. Pt provided scheduled Gabapentin and Clonidine. Pt laid in bed and reports pain shifting, shoulder was better, but left flank was painful. Will continue to monitor.
--- NOTE | 2022-10-16 16:36 | PM.EVENT ---
Event Note Date of Service: 10/16/22 Event Note: hospitalist service was called to evaluate EKG and patient. Patient has chronic peripheral neuropathy pains- which comes on and off and pain is going from last night left upper arm, and mild numbness otherwise moving all extremities upper and lower fine. He says that these symptoms are on and off chronically bother him, no new symptoms . denies any chest pain or shortness of breath or dizziness or palpitations physical exam: Appearance: Alert.? Oriented X3.? not in distress.? cvs: rrr, [id number] . res: clear to auscultation ,no rhonchii or wheezing abd: no rebound or guarding ,nt, bs present. ext pulses present , no cyanosis. let arm pain- More achy type, reproducible, positional, constant, nonradiating neuro: axo3 , nonfocal. assessment and plan: possible neuropathy type pain- seems chronic to me. already on gabapentin, please add add additional dose if possible EKG reviewed seems like NSR not significant any ST changes, troponin x1 negative, we will repeat it. if troponin negative- consider outpatient workup. ? neuropathy possible diabetic related- if pain numbness does not improve consider neurology evaluation. Discussed with the psych in detail length.
[2022-10-16] MEDS: Aspirin 81 MG TAB.CHEW 162 MG PO (16:45)
--- NOTE | 2022-10-16 17:05 | PC.NURSE ---
Patient assessed by Dr. Barth and [employer] Mary Gonzalez. Repeat VS taken 125/75, HR 87, RR18, 98%RA. Labs ordered, repeat EKG completed NSR.
[2022-10-16 17:57] LABS: Glucose, Whole Blood 204 mg/dL (60-115)
[2022-10-16 20:17] LABS: Glucose, Whole Blood 278 mg/dL (60-115)
[2022-10-16] MEDS: Prazosin HCL 1 MG CAPSULE 4 MG PO (20:23)
[2022-10-16] MEDS: QUEtiapine Fumarate 100 MG TABLET PO (20:24)
[2022-10-16] MEDS: diphenhydrAMINE HCL 25 MG CAPSULE 50 MG PO (20:24)
[2022-10-16 20:31] VITALS: BP 111/60; PULSE 92; TEMP 36.8; O2SAT 97
[2022-10-16] MEDS: traZODone HCL 50 MG TABLET PO (20:36)
--- NOTE | 2022-10-17 01:49 | HO.PSYCHPN ---
Subjective Subjective Date of Service: 10/17/22 Reason For Visit: SI Interim History: Discussed with team. Spoke with pt. He says he had acid reflux last night. He still c/o pain. He didnt sleep well. Says he didnt notice benefit on increased gabapentin. Has been using blankets to elevate his arm. He doesnt want med adjustment, doesnt want medicine head, trying to keep his head clear. Mental Status Exam Mental Status Exam Narrative: Appearance: casually groomed, fair hygiene, in NAD Behavior: cooperative Psychomotor: no agitation or retardation noted Speech: clear, normal rate/rhythm/volume, spontaneous TP: linear TC: feeling anxious, worried about reactions when having attacks Mood: okay Affect: congruent AH/VH: on and off voices of protestant nature, command at times but not today Delusions: protestant preoccupation. Insight/judgment: fair x 2. Memory/cog: alert, oriented x 3. Diagnostics Vital Signs (24Hr): Vital Signs - 24 hr 10/16/22 08:15 10/16/22 20:31 Temperature 97.9 F 98.3 F Pulse Rate 83 92 Respiratory Rate 18 Blood Pressure 106/56 L 111/60 Pulse Oximetry 98 97 Oxygen Delivery Method Room Air Room Air BMI result Body Mass Index 24.4 Labs Results: 10/13/22 13:27 10/14/22 08:43 Labs: Laboratory Results - last 48 hr 10/15/22 10/15/22 10/16/22 08:41 20:17 08:56 POC Glucose 208 H 342 H 251 H Troponin I High Sens 10/16/22 10/16/22 10/16/22 12:35 15:38 17:53 POC Glucose 238 H 204 H Troponin I High Sens 4.0 10/16/22 20:12 POC Glucose 278 H Troponin I High Sens Medications Medications Current Medications Acetaminophen (Acetaminophen 325 Mg Tablet) 650 mg PO Q6H PRN PRN Reason: Headache/Pain Mild Scale (1-3) Last Admin: 10/15/22 09:20 Dose: 650 mg Al Hydroxide/Mg Hydroxide (Magnesium Hydrox/Alum Hydrox 30 Ml Oral.Susp) 30 ml PO Q6H PRN PRN Reason: Heartburn/Nausea Aspirin (Aspirin 81 Mg Tab.Chew) 162 mg PO DAILY [facility] Last Admin: 10/16/22 16:45 Dose: 162 mg Bacitracin (Bacitracin Oint 14 Gm Tube) 1 appl TOPICAL BID [facility] Last Admin: 10/17/22 00:17 Dose: Not Given Clonidine HCl (Clonidine Hcl 0.1 Mg Tablet) 0.1 mg PO TID [facility]; Protocol Last Admin: 10/16/22 20:24 Dose: 0.1 mg Dextrose (Dextrose 50 % 25 Gm/50 Ml Syringe) 25 gm IVPUSH Q15M PRN; Protocol PRN Reason: per Hypoglycemia Standing Ord. Diphenhydramine HCl (Diphenhydramine Hcl 25 Mg Capsule) 50 mg PO BEDTIME [facility] Last Admin: 10/16/22 20:24 Dose: 50 mg Divalproex Sodium (Divalproex Sodium 500 Mg Tablet.Dr) 500 mg PO BID [facility] Last Admin: 10/16/22 20:24 Dose: 500 mg Fluoxetine HCl (Fluoxetine Hcl 20 Mg Capsule) 20 mg PO DAILY [facility] Last Admin: 10/16/22 08:58 Dose: 20 mg Gabapentin (Gabapentin 400 Mg Capsule) 400 mg PO TID [facility] Last Admin: 10/16/22 20:24 Dose: 400 mg Glipizide (Glipizide Xl 5 Mg Tab.Er.24) 5 mg PO DAILY [facility] Last Admin: 10/16/22 08:58 Dose: 5 mg Glucose (Glucose Gel 15 Gm Gel..Gram.) 15 gm PO Q15M PRN; Protocol PRN Reason: per Hypoglycemia Standing Ord. Hydroxyzine HCl (Hydroxyzine Hcl 25 Mg Tablet) 25 mg PO Q6H PRN PRN Reason: Anxiety Insulin Human Lispro (Insulin Lispro 100 Unit/Ml 3 Ml Vial) 0 unit SUBCUT QIDACHS [facility]; Protocol Last Admin: 10/16/22 20:23 Dose: 6 unit Magnesium Hydroxide (Milk Of Magnesia 30 Ml Oral.Susp) 30 ml PO DAILY PRN PRN Reason: Constipation Metformin HCl (Metformin Hcl 1,000 Mg Tablet) 1,000 mg PO BID [facility] Last Admin: 10/16/22 20:24 Dose: 1,000 mg Prazosin HCl (Prazosin Hcl 1 Mg Capsule) 4 mg PO BEDTIME [facility]; Protocol Last Admin: 10/16/22 20:23 Dose: 4 mg Quetiapine Fumarate (Quetiapine Fumarate 100 Mg Tablet) 100 mg PO BEDTIME [facility] Last Admin: 10/16/22 20:24 Dose: 100 mg Risperidone (Risperidone 1 Mg Tablet) 1 mg PO BID [facility] Last Admin: 10/16/22 20:24 Dose: 1 mg Trazodone HCl (Trazodone Hcl 50 Mg Tablet) 50 mg PO BEDTIME PRN PRN Reason: Insomnia Last Admin: 10/16/22 20:36 Dose: 50 mg Allergies Allergies Allergy/AdvReac Type Severity Reaction Status Date / Time atorvastatin [From Lipitor] Allergy Unknown Verified 10/13/22 12:19 prochlorperazine Allergy Unknown Verified 10/13/22 12:19 [From Compazine] sitagliptin [From Januvia] Allergy Unknown Verified 10/13/22 12:19 Assessment & Plan Assessment & Plan (1) MDD (major depressive disorder), recurrent, severe, with psychosis: Status: Acute Code(s): F33.3 - Major depressive disorder, recurrent, severe with psychotic symptoms Plan Mr. Grossman is a 52 year-old male hx of trauma r/o Bipolar Disorder, tentative Dx of MDD with psychosis, presents to [facility] ED after staff at [facility] program called crisis due to pt presenting hearing voices, protestant nature telling her to hurt himself and others. Utox positive for cannabis. On the unit, pt reports feeling anxious, worried about his reaction when having attacks which he describes as being like he is being watched, spiritually attacked by others and felt he was being shocked. We discussed risks, benefits and alternative treatment options. PLAN 1. Admit to M3, CV, 15 minutes checks for safety. 2. start risperidone 1mg po BID, continue seroquel but try to keep on only one antipsychotic. continue depakote 3. obtain collateral information 4. aftercare planning. 10/15 increase gabapentin to 300mg po TID. continue risperidone 1mg po BID, may titrate as needed. 10/16 increase gabapentin to 400 mg TID for neuropathic pain. Add aspirin per hospitalist. 10/17 trial aspercreme for pain I spent minutes with the patient and/or on the patient floor today, greater than?50% of which was spent counseling/coordinating care. Patient educated on: medication risk/benefits and therapeutic strategies Reason for contiued inpatient stay Substantial Risk for: rapid decompensation and med/psych decompensation
[2022-10-17 04:49] LABS: Troponin-I High Sensitivity 3.9 ng/L (<3.5-35.0)
[2022-10-17 08:00] VITALS: BP 107/56; PULSE 80; RESP 18; TEMP 36.6; O2SAT 98
[2022-10-17 08:38] LABS: Glucose, Whole Blood 267 mg/dL (60-115)
[2022-10-17] MEDS: Gabapentin 400 MG CAPSULE PO ×3 (09:03→20:20)
[2022-10-17] MEDS: glipiZIDE XL 5 MG TAB.ER.24 PO (09:03)
[2022-10-17] MEDS: Divalproex Sodium 500 MG TABLET.DR PO ×2 (09:03→20:20)
[2022-10-17] MEDS: risperiDONE 1 MG TABLET PO ×2 (09:04→20:20)
[2022-10-17] MEDS: cloNIDine HCL 0.1 MG TABLET PO ×3 (09:04→20:20)
[2022-10-17] MEDS: metFORMIN HCl 1,000 MG TABLET 1000 MG PO ×2 (09:04→20:20)
[2022-10-17] MEDS: Aspirin 81 MG TAB.CHEW 162 MG PO (09:05)
[2022-10-17] MEDS: Insulin Lispro 100 UNIT/ML 3 ML VIAL SUBCUT ×4 (09:05→20:55)
[2022-10-17] MEDS: FLUoxetine HCl 20 MG CAPSULE PO (09:05)
[2022-10-17 12:41] LABS: Glucose, Whole Blood 321 mg/dL (60-115)
[2022-10-17 17:16] LABS: Glucose, Whole Blood 214 mg/dL (60-115)
[2022-10-17 20:10] VITALS: BP 128/84; PULSE 91; RESP 16; TEMP 36.6; O2SAT 97
[2022-10-17] MEDS: Prazosin HCL 1 MG CAPSULE 4 MG PO (20:20)
[2022-10-17] MEDS: QUEtiapine Fumarate 100 MG TABLET PO (20:20)
[2022-10-17] MEDS: diphenhydrAMINE HCL 25 MG CAPSULE 50 MG PO (20:20)
[2022-10-17] MEDS: Acetaminophen 325 MG TABLET 650 MG PO (20:20)
[2022-10-17 20:53] LABS: Glucose, Whole Blood 276 mg/dL (60-115)
[2022-10-17] MEDS: Trolamine Salicylate 10 % Cream 85 GM TUBE 1 APPL TOPICAL (22:52)
[2022-10-18 06:00] VITALS: BP 117/60; PULSE 67; RESP 16; TEMP 36.7; O2SAT 95
[2022-10-18 08:21] LABS: Glucose, Whole Blood 258 mg/dL (60-115)
[2022-10-18] MEDS: cloNIDine HCL 0.1 MG TABLET PO ×3 (09:04→20:25)
[2022-10-18] MEDS: Aspirin 81 MG TAB.CHEW 162 MG PO (09:04)
[2022-10-18] MEDS: FLUoxetine HCl 20 MG CAPSULE PO (09:04)
[2022-10-18] MEDS: glipiZIDE XL 5 MG TAB.ER.24 PO (09:04)
[2022-10-18] MEDS: Divalproex Sodium 500 MG TABLET.DR PO ×2 (09:05→20:25)
[2022-10-18] MEDS: risperiDONE 1 MG TABLET PO ×2 (09:05→20:25)
[2022-10-18] MEDS: Gabapentin 400 MG CAPSULE PO ×3 (09:05→20:25)
[2022-10-18] MEDS: metFORMIN HCl 1,000 MG TABLET 1000 MG PO ×2 (09:05→20:25)
[2022-10-18] MEDS: Insulin Lispro 100 UNIT/ML 3 ML VIAL SUBCUT ×3 (09:49→18:34)
--- NOTE | 2022-10-18 12:42 | HO.PSYCHPN ---
Subjective Subjective Date of Service: 10/18/22 Reason For Visit: SI Subjective Notes: Conditional Voluntary Interim History: Pt reports feeling calmer, having less feeling of being spiritually attacked but some of these ideas continue. He denies SI/HI. He reports difficulty sleeping here on the unit as beds are too hard for his back. Per nursing, he is visible on the unit, social with select peers. He asks if he can be discharged tomorrow. Medication Compliance: Yes Side effects from medications: No Review of Systems Review of Systems Yes all other systems are reviewed and are negative Mental Status Exam Mental Status Exam Narrative: Appearance: casually groomed, fair hygiene, in NAD Behavior: cooperative Psychomotor: no agitation or retardation noted Speech: clear, normal rate/rhythm/volume, spontaneous TP: linear TC: feeling anxious, worried about reactions when having attacks Mood: okay Affect: congruent AH/VH: on and off voices of hoahaoism nature, command at times but not today Delusions: hoahaoism preoccupation. Insight/judgment: fair x 2. Memory/cog: alert, oriented x 3. Diagnostics Vital Signs (24Hr): Vital Signs - 24 hr 10/18/22 14:53 10/18/22 20:10 Temperature 98.2 F Pulse Rate 85 89 Respiratory Rate 16 Blood Pressure 126/68 127/74 Pulse Oximetry 97 Oxygen Delivery Method Room Air BMI result Body Mass Index 24.4 Labs Results: 10/13/22 13:27 10/14/22 08:43 Labs: Laboratory Results - last 48 hr 10/17/22 10/17/22 10/17/22 12:36 17:12 20:49 POC Glucose 321 H 214 H 276 H 10/18/22 10/18/22 10/18/22 08:17 13:29 17:40 POC Glucose 258 H 243 H 236 H 10/19/22 08:21 POC Glucose 217 H Medications Medications Current Medications Acetaminophen (Acetaminophen 325 Mg Tablet) 650 mg PO Q6H PRN PRN Reason: Headache/Pain Mild Scale (1-3) Last Admin: 10/18/22 14:57 Dose: 650 mg Al Hydroxide/Mg Hydroxide (Magnesium Hydrox/Alum Hydrox 30 Ml Oral.Susp) 30 ml PO Q6H PRN PRN Reason: Heartburn/Nausea Aspirin (Aspirin 81 Mg Tab.Chew) 162 mg PO DAILY [facility] Last Admin: 10/18/22 09:04 Dose: 162 mg Bacitracin (Bacitracin Oint 14 Gm Tube) 1 appl TOPICAL BID [facility] Last Admin: 10/18/22 21:41 Dose: Not Given Clonidine HCl (Clonidine Hcl 0.1 Mg Tablet) 0.1 mg PO TID [facility]; Protocol Last Admin: 10/18/22 20:25 Dose: 0.1 mg Dextrose (Dextrose 50 % 25 Gm/50 Ml Syringe) 25 gm IVPUSH Q15M PRN; Protocol PRN Reason: per Hypoglycemia Standing Ord. Diphenhydramine HCl (Diphenhydramine Hcl 25 Mg Capsule) 50 mg PO BEDTIME [facility] Last Admin: 10/18/22 20:25 Dose: 50 mg Divalproex Sodium (Divalproex Sodium 500 Mg Tablet.Dr) 500 mg PO BID [facility] Last Admin: 10/18/22 20:25 Dose: 500 mg Fluoxetine HCl (Fluoxetine Hcl 20 Mg Capsule) 20 mg PO DAILY [facility] Last Admin: 10/18/22 09:04 Dose: 20 mg Gabapentin (Gabapentin 400 Mg Capsule) 400 mg PO TID [facility] Last Admin: 10/18/22 20:25 Dose: 400 mg Glipizide (Glipizide Xl 5 Mg Tab.Er.24) 5 mg PO DAILY [facility] Last Admin: 10/18/22 09:04 Dose: 5 mg Glucose (Glucose Gel 15 Gm Gel..Gram.) 15 gm PO Q15M PRN; Protocol PRN Reason: per Hypoglycemia Standing Ord. Hydroxyzine HCl (Hydroxyzine Hcl 25 Mg Tablet) 25 mg PO Q6H PRN PRN Reason: Anxiety Insulin Human Lispro (Insulin Lispro 100 Unit/Ml 3 Ml Vial) 0 unit SUBCUT QIDACHS [facility]; Protocol Last Admin: 10/18/22 21:40 Dose: Not Given Magnesium Hydroxide (Milk Of Magnesia 30 Ml Oral.Susp) 30 ml PO DAILY PRN PRN Reason: Constipation Metformin HCl (Metformin Hcl 1,000 Mg Tablet) 1,000 mg PO BID [facility] Last Admin: 10/18/22 20:25 Dose: 1,000 mg Prazosin HCl (Prazosin Hcl 1 Mg Capsule) 4 mg PO BEDTIME [facility]; Protocol Last Admin: 10/18/22 20:25 Dose: 4 mg Quetiapine Fumarate (Quetiapine Fumarate 100 Mg Tablet) 100 mg PO BEDTIME [facility] Last Admin: 10/18/22 20:25 Dose: 100 mg Risperidone (Risperidone 1 Mg Tablet) 1 mg PO BID [facility] Last Admin: 10/18/22 20:25 Dose: 1 mg Trazodone HCl (Trazodone Hcl 50 Mg Tablet) 50 mg PO BEDTIME PRN PRN Reason: Insomnia Last Admin: 10/16/22 20:36 Dose: 50 mg Trolamine Salicylate (Trolamine Salicylate 10 % Cream 85 Gm Tube) 1 appl TOPICAL TID PRN; Protocol PRN Reason: Pain, Moderate (Pain Scale 4-6 Last Admin: 10/17/22 22:52 Dose: 1 appl Allergies Allergies Allergy/AdvReac Type Severity Reaction Status Date / Time atorvastatin [From Lipitor] Allergy Unknown Verified 10/13/22 12:19 prochlorperazine Allergy Unknown Verified 10/13/22 12:19 [From Compazine] sitagliptin [From Januvia] Allergy Unknown Verified 10/13/22 12:19 Assessment & Plan Assessment & Plan (1) MDD (major depressive disorder), recurrent, severe, with psychosis: Status: Acute Code(s): F33.3 - Major depressive disorder, recurrent, severe with psychotic symptoms Plan Mr. Grossman is a 52 year-old male hx of trauma r/o Bipolar Disorder, tentative Dx of MDD with psychosis, presents to [facility] after staff at [facility] program called crisis due to pt presenting hearing voices, hoahaoism nature telling her to hurt himself and others. Utox positive for cannabis. On the unit, pt reports feeling anxious, worried about his reaction when having attacks which he describes as being like he is being watched, spiritually attacked by others and felt he was being shocked. We discussed risks, benefits and alternative treatment options. PLAN 1. Admit to M3, CV, 15 minutes checks for safety. 2. start risperidone 1mg po BID, continue seroquel but try to keep on only one antipsychotic. continue depakote 3. obtain collateral information 4. aftercare planning. 10/15 increase gabapentin to 300mg po TID. continue risperidone 1mg po BID, may titrate as needed. 10/16 increase gabapentin to 400 mg TID for neuropathic pain. Add aspirin per hospitalist. 10/17 trial aspercreme for pain 10/18 continue tx. I spent minutes with the patient and/or on the patient floor today, greater than?50% of which was spent counseling/coordinating care. Reason for contiued inpatient stay Substantial Risk for: harm to self
[2022-10-18 13:33] LABS: Glucose, Whole Blood 243 mg/dL (60-115)
[2022-10-18 14:53] VITALS: BP 126/68; PULSE 85
[2022-10-18] MEDS: Acetaminophen 325 MG TABLET 650 MG PO (14:57)
[2022-10-18 17:44] LABS: Glucose, Whole Blood 236 mg/dL (60-115)
[2022-10-18 20:10] VITALS: BP 127/74; PULSE 89; RESP 16; TEMP 36.8; O2SAT 97
[2022-10-18] MEDS: Prazosin HCL 1 MG CAPSULE 4 MG PO (20:25)
[2022-10-18] MEDS: QUEtiapine Fumarate 100 MG TABLET PO (20:25)
[2022-10-18] MEDS: diphenhydrAMINE HCL 25 MG CAPSULE 50 MG PO (20:25)
[2022-10-19 08:10] VITALS: BP 105/65; PULSE 85; RESP 18; TEMP 36.8; O2SAT 98
[2022-10-19 08:38] LABS: Glucose, Whole Blood 217 mg/dL (60-115)
--- NOTE | 2022-10-19 08:45 | PM.PSYDC ---
DS: Providers Provider Date of Service: 10/19/22 Date of admission: 10/13/22 19:10 Primary care physician: Unknown Physician DS: Diagnosis Discharge Diagnosis (1) MDD (major depressive disorder), recurrent, severe, with psychosis: Status: Acute DS: Medications Discharge Medications Home Medications: Home Medications Medication Instructions Recorded Confirmed clonidine HCl 0.1 mg tablet 0.1 mg PO TID 10/13/22 10/13/22 diphenhydramine HCl 50 mg capsule 50 mg PO BEDTIME 10/13/22 10/13/22 divalproex 500 mg tablet,delayed 500 mg PO TID 10/13/22 10/13/22 release (Depakote) fluoxetine 40 mg capsule (Prozac) 40 mg PO QPM 10/13/22 10/13/22 gabapentin 100 mg capsule 100 mg PO TID 10/13/22 10/13/22 glipizide 5 mg tablet, extended 5 mg PO DAILY 10/13/22 10/13/22 release 24 hr metformin 1,000 mg tablet 1,000 mg PO BID 10/13/22 10/14/22 prazosin 2 mg capsule 4 mg PO BEDTIME 10/13/22 10/14/22 quetiapine 100 mg tablet (Seroquel) 100 mg PO BEDTIME 10/13/22 10/14/22 Mental Status Exam Mental Status Exam Narrative: Appearance: casually groomed, fair hygiene, in NAD Behavior: cooperative Psychomotor: no agitation or retardation noted Speech: clear, normal rate/rhythm/volume, spontaneous TP: linear TC: feeling anxious, worried about reactions when having attacks Mood: okay Affect: congruent AH/VH: on and off voices of druze nature, command at times but not today Delusions: druze preoccupation. Insight/judgment: fair x 2. Memory/cog: alert, oriented x 3. Data Data Completed and Pending Completed studies during hospitalization [Text1]: 10/13/22 10/13/22 10/13/22 12:44 12:44 12:44 WBC RBC Hgb Hct MCV MCH MCHC RDW Plt Count MPV Immature Gran % (Auto) Neut % (Auto) Lymph % (Auto) [place] % (Auto) Eos % (Auto) Baso % (Auto) Lymph # (Auto) [place] # (Auto) Eos # (Auto) Baso # (Auto) Abs Immat Gran (auto) Absolute Neuts (auto) Absolute Nucleated RBC Nucleated RBC % (auto) Sodium Potassium Chloride Carbon Dioxide Anion Gap BUN Creatinine Estim Creat Clear Calc Estimated GFR POC Glucose Random Glucose Fasting Glucose Estimat Average Glucose Hemoglobin A1c % Calcium Total Bilirubin AST ALT Alkaline Phosphatase Troponin I High Sens Total Protein Albumin Triglycerides Cholesterol LDL Cholesterol, Calc HDL Cholesterol Lipase Vitamin B12 Folate TSH Urine Color Yellow Urine Appearance Clear Urine pH 5.0 Ur Specific [place] >= 1.030 H Urine Protein Negative Urine Glucose (UA) >=1000 H Urine Ketones 15 Urine Blood Negative Urine Nitrite Negative Ur Leukocyte Esterase Negative Urine RBC 0-2 Urine WBC 0-5 Ur Squamous Epith Cells 0-2 Urine Bacteria None Seen Hyaline Casts 0-2 Urine Opiates Screen Not Detected Urine Fentanyl Screen Not Detected Ur Barbiturates Screen Not Detected Ur Phencyclidine Scrn Not Detected Ur Amphetamines Screen Not Detected U Benzodiazepines Scrn Not Detected Urine Cocaine Screen Not Detected U Marijuana (THC) Screen POSITIVE H COVID-19 (VICKI) Negative COVID-19 Clin Com See Note 10/13/22 10/13/22 10/14/22 13:27 13:27 08:43 WBC 6.5 RBC 4.78 Hgb 14.9 Hct 44.1 MCV 92.3 MCH 31.2 MCHC 33.8 RDW 12.8 Plt Count 214 MPV 8.7 L Immature Gran % (Auto) 0.6 H Neut % (Auto) 58.7 Lymph % (Auto) 29.7 [place] % (Auto) 6.5 Eos % (Auto) 4.0 Baso % (Auto) 0.5 Lymph # (Auto) 1.9 [place] # (Auto) 0.4 Eos # (Auto) 0.3 Baso # (Auto) 0.0 Abs Immat Gran (auto) 0.04 H Absolute Neuts (auto) 3.8 Absolute Nucleated RBC 0.000 Nucleated RBC % (auto) 0.0 Sodium 135 137 Potassium 3.8 5.1 D Chloride 97 101 Carbon Dioxide 26 29 Anion Gap 16 12 BUN 13 10 Creatinine 1.00 1.04 Estim Creat Clear Calc 92.6 89.1 Estimated GFR > 60 > 60 POC Glucose Random Glucose 275 H Fasting Glucose 230 H Estimat Average Glucose Hemoglobin A1c % Calcium 9.1 9.8 D Total Bilirubin 0.4 0.5 AST 16 15 ALT 15 16 Alkaline Phosphatase 62 60 Troponin I High Sens Total Protein 6.4 L 7.1 Albumin 4.0 4.3 Triglycerides 94 Cholesterol 265 LDL Cholesterol, Calc 197 HDL Cholesterol 50 Lipase 61 Vitamin B12 Folate TSH 1.01 Urine Color Urine Appearance Urine pH Ur Specific [place] Urine Protein Urine Glucose (UA) Urine Ketones Urine Blood Urine Nitrite Ur Leukocyte Esterase Urine RBC Urine WBC Ur Squamous Epith Cells Urine Bacteria Hyaline Casts Urine Opiates Screen Urine Fentanyl Screen Ur Barbiturates Screen Ur Phencyclidine Scrn Ur Amphetamines Screen U Benzodiazepines Scrn Urine Cocaine Screen U Marijuana (THC) Screen COVID-19 (VICKI) COVID-19 Clin Com 10/14/22 10/14/22 10/14/22 08:43 08:43 21:00 WBC RBC Hgb Hct MCV MCH MCHC RDW Plt Count MPV Immature Gran % (Auto) Neut % (Auto) Lymph % (Auto) [place] % (Auto) Eos % (Auto) Baso % (Auto) Lymph # (Auto) [place] # (Auto) Eos # (Auto) Baso # (Auto) Abs Immat Gran (auto) Absolute Neuts (auto) Absolute Nucleated RBC Nucleated RBC % (auto) Sodium Potassium Chloride Carbon Dioxide Anion Gap BUN Creatinine Estim Creat Clear Calc Estimated GFR POC Glucose 350 H* Random Glucose Fasting Glucose Estimat Average Glucose 237 Hemoglobin A1c % 9.9 Calcium Total Bilirubin AST ALT Alkaline Phosphatase Troponin I High Sens Total Protein Albumin Triglycerides Cholesterol LDL Cholesterol, Calc HDL Cholesterol Lipase Vitamin B12 573 Folate 13.9 TSH Urine Color Urine Appearance Urine pH Ur Specific [place] Urine Protein Urine Glucose (UA) Urine Ketones Urine Blood Urine Nitrite Ur Leukocyte Esterase Urine RBC Urine WBC Ur Squamous Epith Cells Urine Bacteria Hyaline Casts Urine Opiates Screen Urine Fentanyl Screen Ur Barbiturates Screen Ur Phencyclidine Scrn Ur Amphetamines Screen U Benzodiazepines Scrn Urine Cocaine Screen U Marijuana (THC) Screen COVID-19 (VICKI) COVID-19 Clin Com 10/15/22 10/15/22 10/16/22 08:41 20:17 08:56 WBC RBC Hgb Hct MCV MCH MCHC RDW Plt Count MPV Immature Gran % (Auto) Neut % (Auto) Lymph % (Auto) [place] % (Auto) Eos % (Auto) Baso % (Auto) Lymph # (Auto) [place] # (Auto) Eos # (Auto) Baso # (Auto) Abs Immat Gran (auto) Absolute Neuts (auto) Absolute Nucleated RBC Nucleated RBC % (auto) Sodium Potassium Chloride Carbon Dioxide Anion Gap BUN Creatinine Estim Creat Clear Calc Estimated GFR POC Glucose 208 H 342 H 251 H Random Glucose Fasting Glucose Estimat Average Glucose Hemoglobin A1c % Calcium Total Bilirubin AST ALT Alkaline Phosphatase Troponin I High Sens Total Protein Albumin Triglycerides Cholesterol LDL Cholesterol, Calc HDL Cholesterol Lipase Vitamin B12 Folate TSH Urine Color Urine Appearance Urine pH Ur Specific [place] Urine Protein Urine Glucose (UA) Urine Ketones Urine Blood Urine Nitrite Ur Leukocyte Esterase Urine RBC Urine WBC Ur Squamous Epith Cells Urine Bacteria Hyaline Casts Urine Opiates Screen Urine Fentanyl Screen Ur Barbiturates Screen Ur Phencyclidine Scrn Ur Amphetamines Screen U Benzodiazepines Scrn Urine Cocaine Screen U Marijuana (THC) Screen COVID-19 (VICKI) COVID-19 Xeneta 10/16/22 10/16/22 10/16/22 12:35 15:38 17:53 WBC RBC Hgb Hct MCV MCH MCHC RDW Plt Count MPV Immature Gran % (Auto) Neut % (Auto) Lymph % (Auto) [place] % (Auto) Eos % (Auto) Baso % (Auto) Lymph # (Auto) [place] # (Auto) Eos # (Auto) Baso # (Auto) Abs Immat Gran (auto) Absolute Neuts (auto) Absolute Nucleated RBC Nucleated RBC % (auto) Sodium Potassium Chloride Carbon Dioxide Anion Gap BUN Creatinine Estim Creat Clear Calc Estimated GFR POC Glucose 238 H 204 H Random Glucose Fasting Glucose Estimat Average Glucose Hemoglobin A1c % Calcium Total Bilirubin AST ALT Alkaline Phosphatase Troponin I High Sens 4.0 Total Protein Albumin Triglycerides Cholesterol LDL Cholesterol, Calc HDL Cholesterol Lipase Vitamin B12 Folate TSH Urine Color Urine Appearance Urine pH Ur Specific [place] Urine Protein Urine Glucose (UA) Urine Ketones Urine Blood Urine Nitrite Ur Leukocyte Esterase Urine RBC Urine WBC Ur Squamous Epith Cells Urine Bacteria Hyaline Casts Urine Opiates Screen Urine Fentanyl Screen Ur Barbiturates Screen Ur Phencyclidine Scrn Ur Amphetamines Screen U Benzodiazepines Scrn Urine Cocaine Screen U Marijuana (THC) Screen COVID-19 (VICKI) eSoft 10/16/22 10/16/22 10/17/22 19:04 20:12 08:23 WBC RBC Hgb Hct MCV MCH MCHC RDW Plt Count MPV Immature Gran % (Auto) Neut % (Auto) Lymph % (Auto) [place] % (Auto) Eos % (Auto) Baso % (Auto) Lymph # (Auto) [place] # (Auto) Eos # (Auto) Baso # (Auto) Abs Immat Gran (auto) Absolute Neuts (auto) Absolute Nucleated RBC Nucleated RBC % (auto) Sodium Potassium Chloride Carbon Dioxide Anion Gap BUN Creatinine Estim Creat Clear Calc Estimated GFR POC Glucose 278 H 267 H Random Glucose Fasting Glucose Estimat Average Glucose Hemoglobin A1c % Calcium Total Bilirubin AST ALT Alkaline Phosphatase Troponin I High Sens 3.9 Total Protein Albumin Triglycerides Cholesterol LDL Cholesterol, Calc HDL Cholesterol Lipase Vitamin B12 Folate TSH Urine Color Urine Appearance Urine pH Ur Specific [place] Urine Protein Urine Glucose (UA) Urine Ketones Urine Blood Urine Nitrite Ur Leukocyte Esterase Urine RBC Urine WBC Ur Squamous Epith Cells Urine Bacteria Hyaline Casts Urine Opiates Screen Urine Fentanyl Screen Ur Barbiturates Screen Ur Phencyclidine Scrn Ur Amphetamines Screen U Benzodiazepines Scrn Urine Cocaine Screen U Marijuana (THC) Screen COVID-19 (VICKI) COVID-19 Xeneta 10/17/22 10/17/22 10/17/22 12:36 17:12 20:49 WBC RBC Hgb Hct MCV MCH MCHC RDW Plt Count MPV Immature Gran % (Auto) Neut % (Auto) Lymph % (Auto) [place] % (Auto) Eos % (Auto) Baso % (Auto) Lymph # (Auto) [place] # (Auto) Eos # (Auto) Baso # (Auto) Abs Immat Gran (auto) Absolute Neuts (auto) Absolute Nucleated RBC Nucleated RBC % (auto) Sodium Potassium Chloride Carbon Dioxide Anion Gap BUN Creatinine Estim Creat Clear Calc Estimated GFR POC Glucose 321 H 214 H 276 H Random Glucose Fasting Glucose Estimat Average Glucose Hemoglobin A1c % Calcium Total Bilirubin AST ALT Alkaline Phosphatase Troponin I High Sens Total Protein Albumin Triglycerides Cholesterol LDL Cholesterol, Calc HDL Cholesterol Lipase Vitamin B12 Folate TSH Urine Color Urine Appearance Urine pH Ur Specific [place] Urine Protein Urine Glucose (UA) Urine Ketones Urine Blood Urine Nitrite Ur Leukocyte Esterase Urine RBC Urine WBC Ur Squamous Epith Cells Urine Bacteria Hyaline Casts Urine Opiates Screen Urine Fentanyl Screen Ur Barbiturates Screen Ur Phencyclidine Scrn Ur Amphetamines Screen U Benzodiazepines Scrn Urine Cocaine Screen U Marijuana (THC) Screen COVID-19 (VICKI) COVID-19 Xeneta 10/18/22 10/18/22 10/18/22 08:17 13:29 17:40 WBC RBC Hgb Hct MCV MCH MCHC RDW Plt Count MPV Immature Gran % (Auto) Neut % (Auto) Lymph % (Auto) [place] % (Auto) Eos % (Auto) Baso % (Auto) Lymph # (Auto) [place] # (Auto) Eos # (Auto) Baso # (Auto) Abs Immat Gran (auto) Absolute Neuts (auto) Absolute Nucleated RBC Nucleated RBC % (auto) Sodium Potassium Chloride Carbon Dioxide Anion Gap BUN Creatinine Estim Creat Clear Calc Estimated GFR POC Glucose 258 H 243 H 236 H Random Glucose Fasting Glucose Estimat Average Glucose Hemoglobin A1c % Calcium Total Bilirubin AST ALT Alkaline Phosphatase Troponin I High Sens Total Protein Albumin Triglycerides Cholesterol LDL Cholesterol, Calc HDL Cholesterol Lipase Vitamin B12 Folate TSH Urine Color Urine Appearance Urine pH Ur Specific [place] Urine Protein Urine Glucose (UA) Urine Ketones Urine Blood Urine Nitrite Ur Leukocyte Esterase Urine RBC Urine WBC Ur Squamous Epith Cells Urine Bacteria Hyaline Casts Urine Opiates Screen Urine Fentanyl Screen Ur Barbiturates Screen Ur Phencyclidine Scrn Ur Amphetamines Screen U Benzodiazepines Scrn Urine Cocaine Screen U Marijuana (THC) Screen COVID-19 (VICKI) COVID-19 tuul Com 10/19/22 08:21 WBC RBC Hgb Hct MCV MCH MCHC RDW Plt Count MPV Immature Gran % (Auto) Neut % (Auto) Lymph % (Auto) [place] % (Auto) Eos % (Auto) Baso % (Auto) Lymph # (Auto) [place] # (Auto) Eos # (Auto) Baso # (Auto) Abs Immat Gran (auto) Absolute Neuts (auto) Absolute Nucleated RBC Nucleated RBC % (auto) Sodium Potassium Chloride Carbon Dioxide Anion Gap BUN Creatinine Estim Creat Clear Calc Estimated GFR POC Glucose 217 H Random Glucose Fasting Glucose Estimat Average Glucose Hemoglobin A1c % Calcium Total Bilirubin AST ALT Alkaline Phosphatase Troponin I High Sens Total Protein Albumin Triglycerides Cholesterol LDL Cholesterol, Calc HDL Cholesterol Lipase Vitamin B12 Folate TSH Urine Color Urine Appearance Urine pH Ur Specific [place] Urine Protein Urine Glucose (UA) Urine Ketones Urine Blood Urine Nitrite Ur Leukocyte Esterase Urine RBC Urine WBC Ur Squamous Epith Cells Urine Bacteria Hyaline Casts Urine Opiates Screen Urine Fentanyl Screen Ur Barbiturates Screen Ur Phencyclidine Scrn Ur Amphetamines Screen U Benzodiazepines Scrn Urine Cocaine Screen U Marijuana (THC) Screen COVID-19 (VICKI) COVID-19 Clin Com DS: Summary Hospital Course Hospital Course: HPI: Mr. Grossman is a 52 year-old male with hx of PTSD, alcohol use in remission. Pt was assessed by [facility] after staff at [facility] called them reporting that pt has been reporting increasing auditory hallucinations of druze nature telling him to harm others and himself. In the ED, his utox is positive for cannabinoids. On the unit, pt reports he has long hx of depression, nightmares related to past trauma as child. Pt reports intermittent suicidal ideation throughout his life. He reports having a an episode at program when he felt he was being spiritually attack. He reports he felt someone was shocking him and he could not say in the name of God. Pt reports that at that time he felt fearful, worried about how he would react towards others when having feeling of being watched and spiritually attack. He continues to report suicidal ideation but denies any plan or intent. He reports hearing voices at night but sometimes during the day. He reports feeling anxious which he attributes to both financial concerns and recent experiences of being spiritually attacked Past Psychiatric History: Inpatient: 2 in the past OP: [facility] Past trials: prozac, seroquel, gabapentin Medical Evaluation Reviewed: Yes HOSPITAL COURSE On the unit, Mr. Grossman was admitted on a CV and placed on 15 minutes checks for safety. Pt reported feeling as if he was being watched, he also reported that he felt that he was being spiritually attacked. He reported at that time he did not feel safe and worried about his reactions towards others in the program. On the unit, he continues to report hearing voices of druze nature. He reported long hx of depression and intermittent suicidal ideation related to trauma. We discussed risks, benefits and alternative treatment options. Pt agreed to start risperidone to target AH, druze preoccupations. He was continued on seroquel as pt reported it was helping him to sleep but ideally outpatient can consider keeping him on only one antipsychotic. Pt has been treated mostl for depression and PTSD but consider ruling out Bipolar Disorder versus MDD with psychosis. His affect gradually presented as less hypervigilant and guarded. He reported less AH, feeling less Spiritually attack. Some insight that these experiences were psychiatric symptoms but still question if that is the case or not. He had poor night sleep due to chronic back pain and neuropathic pain. Gabapentin was increased from 100mg po TID to 400mg po TID- he reported some benefit but limited. He was also given aspirin per hospitalist- monitor comorbid GERD and risk for GI bleed. There were no incidences of disruptive behaviors nor need for restraints. Pt presented as future oriented looking forward to return to [facility] program and continue treatment. Status at Discharge Cognitive/behavioral status at discharge: Pt with brighter, less AH, less druze preoccupation but continues to experience them to some extend. No SI/HI. Sleep is fair due to chronic back pain. Good appetite. No signs of aggression towards self or others. Functional status at discharge: independent ambulation Overall status at discharge: patient is progressing back to baseline Time Spent with Patient Time attestation: Total time spent providing and/or coordinating discharge services: Discharge Plan Discharge Anticipated Discharge Date/Time: 10/19/22 08:45 Patient Disposition: Home, Self-Care Discharge Diagnosis: Bipolar Disorder versus MDD with psychosis Referrals: Dr. Satish Silva (psychiatrist) [Other] - 10/30/22 (Please follow up with your psychiatrist to get on a waitlist for therapy) [facility] [Physician] - 1 Week Discharge Medications: New clonidine HCl 0.1 mg Tablet 0.1 mg PO TID Qty: 90 0RF Protocol: Hold for SBP< HOLD for SBP < : 90 prazosin 2 mg capsule 4 mg PO BEDTIME Qty: 60 0RF trazodone 50 mg Tablet 50 mg PO BEDTIME PRN (Reason: Insomnia) Qty: 30 0RF gabapentin 400 mg Capsule 400 mg PO TID Qty: 90 0RF divalproex 500 mg Tablet,Delayed Release (Dr/Ec) 500 mg PO BID Qty: 60 0RF quetiapine 100 mg Tablet 100 mg PO BEDTIME Qty: 30 0RF fluoxetine 20 mg Capsule 20 mg PO DAILY Qty: 30 0RF risperidone 1 mg Tablet 1 mg PO BID Qty: 60 0RF Continued diphenhydramine HCl 50 mg Capsule 50 mg PO BEDTIME glipizide 5 mg Tablet Extended Release 24hr 5 mg PO DAILY metformin 1,000 mg Tablet 1,000 mg PO BID Discontinued clonidine HCl 0.1 mg Tablet 0.1 mg PO TID divalproex [Depakote] 500 mg Tablet,Delayed Release (Dr/Ec) 500 mg PO TID gabapentin 100 mg Capsule 100 mg PO TID fluoxetine [Prozac] 40 mg Capsule 40 mg PO QPM quetiapine [Seroquel] 100 mg Tablet 100 mg PO BEDTIME prazosin 2 mg Capsule 4 mg PO BEDTIME Discharge Orders: Discharge Order (Routine); Ordered 10/19/22 Ordered By: Sera Mendez Diet: Regular diet Activity on Discharge: As tolerated Stand Alone Forms: Patient Portal Discharge page Care Plan Goals: 1. Maintain mood 2. No SI/HI 3. Less AH, druze delusions 4. No signs of aggression towards self or others. Health Concerns: Follow up with PCP Plan of Treatment: 1. Take medications as prescribed. 2. Go to nearest ED or call 911 in event of emergency Assessment: Pt with brighter, non labile, less anxiety, less AH, less druze preoccupations. No signs of aggression towards self or others. No SI/HI.
[2022-10-19] MEDS: FLUoxetine HCl 20 MG CAPSULE PO (09:37)
[2022-10-19] MEDS: Aspirin 81 MG TAB.CHEW 162 MG PO (09:37)
[2022-10-19] MEDS: risperiDONE 1 MG TABLET PO (09:37)
[2022-10-19] MEDS: cloNIDine HCL 0.1 MG TABLET PO (09:38)
[2022-10-19] MEDS: Gabapentin 400 MG CAPSULE PO (09:38)
[2022-10-19] MEDS: Insulin Lispro 100 UNIT/ML 3 ML VIAL SUBCUT (09:39)
[2022-10-19] MEDS: metFORMIN HCl 1,000 MG TABLET 1000 MG PO (09:39)
[2022-10-19] MEDS: glipiZIDE XL 5 MG TAB.ER.24 PO (09:39)
[2022-10-19] MEDS: Divalproex Sodium 500 MG TABLET.DR PO (09:39)
--- NOTE | 2022-10-19 13:14 | PC.NURSE ---
Pt ready and aware to be discharged. He denies SI/HI He verbalized understanding of discharge instructions to include appointments and medications.
== END 2022-10-19 13:05 | disposition home or self-care (01) | DRG 753 ==
LOC: HO.ED 17:35 → HO.PADLT16 19:21
PROVIDERS: Internal Medicine; Registered Nurse; Admitting Provider Psychiatry & Neurology Psychiatry; Emergency Provider Emergency Medicine Emergency Medical Services; Visit Provider Social Worker
DX: F31.2 Bipolar disorder, current episode manic severe with psychotic features (principal); F33.3 Major depressive disorder, recurrent, severe with psychotic symptoms; R45.851 Suicidal ideations; E11.42 Type 2 diabetes mellitus with diabetic polyneuropathy; E78.5 Hyperlipidemia, unspecified; F10.10 Alcohol abuse, uncomplicated; G25.81 Restless legs syndrome; Z20.822 Contact with and (suspected) exposure to COVID-19; Z87.891 Personal history of nicotine dependence; Z88.0 Allergy status to penicillin; Z79.84 Long term (current) use of oral hypoglycemic drugs; Z79.899 Other long term (current) drug therapy
CPT/HCPCS: 36415; 80053; 80061; 80307; 81001; 81003; 82607; 82746; 82947; 83036; 83690; 84443; 84484; 85025; 87635; 93005; 99285